=== PATIENT | female | born 1955 | race Caucasian/White ===

== ENCOUNTER → 2024-08-20 17:51 | Outpatient (CLI) | payer OTHER, MEDICARE, SELFPAY | PROVIDERS: Family Provider Family Medicine; Referring Provider Internal Medicine; Visit Provider Internal Medicine | DX: Z23 Encounter for immunization (principal) | CPT/HCPCS: 90471; 90656 ==

== ENCOUNTER 2025-05-25 08:50 | Day surgery (SDC) | payer OTHER, MEDICARE, SELFPAY ==
[2025-05-20 11:56] VITALS: BMI 23.8
[2025-05-25] VITALS (10 sets, daily range): BP systolic 167–228; BP diastolic 81–98; PULSE 52–63; RESP 14–971; TEMP 36.1–36.6; O2SAT 97–100; BMI 23.8
[2025-05-25] MEDS: LACTATED RINGERS 1,000 ML 42 ML IV (09:30)
--- NOTE | 2025-05-25 10:13 | PM.PREOP ---
Pre-operative Note COVID-19 Result date/Date tested (Pos, Neg/Pending): 05/25/25 Interval Note History & Physical reviewed/Exam performed by Physician: Yes Changes to H&P: No
[2025-05-25] MEDS: CEFAZOLIN 2 GM/100 ML PREMIX 100 ML IV (10:40)
--- NOTE | 2025-05-25 10:56 | SUR.OPER ---
Supine on padded OR bed, head on pillow, non operative arm secured on padded arm boards at <90 degrees abduction, operative arm on padded arm board, legs uncrossed, safety belt at thigh, tape over blanket over lower legs. Dr. Mcgarry in room at time of positioning to assist.
[2025-05-25] MEDS: LIDOCAINE 1% 20 ML INJ (11:07)
--- NOTE | 2025-05-25 11:32 | SUR.PHASEI ---
Pt had successive BP 182/82, 196/88, 206/83, d/w Connie FLORES, plan to monitor and notify if BP stays high Branden RN [id number]
--- NOTE | 2025-05-25 11:35 | P.OP_ITS ---
Operative Date/Time/Diagnoses Date of procedure: 05/25/25 Time of procedure: 11:35 Pre-op diagnosis: RIGHT Ring Finger Trigger Finger Post-op diagnosis: same Procedure & Clinicians Procedure: RIGHT RIng Finger Trigger Finger Same procedure(s) as scheduled: Yes Indications: Chronic Triggering Surgeon: Sudhakar Mcgarry American History Professor: Alla Pacheco Anesthesia Type: Sedation Operative Notes Findings: Thickened A1 rupa with a nodule on the flexor tendon Closure Type: primary Specimen(s): none sent Applied: none Estimated Blood Loss (mL): 3 Blood products transfused: none Tourniquet time (min): 22 Procedure in detail: Fingers Released: RIGHT Ring Finger Preoperative diagnosis: Stenosing Tenosynovitis of the Above Digits Procedure performed: A1 Rupa Release of the Above Digits Postoperative diagnosis: Same Primary Surgeon: Sudhakar Mcgarry MD Secondary Surgeon: PRUDENCIO Fonseca Physician American History Professor was used throughout the entirety of the case. This operation could not have been safely performed (without compromising the technical results or length of the procedure) without the assistance of a skilled surgical clinical reviewer. A surgical clinical reviewer was medically necessary for room set up, patient positioning, draping, retraction, visualization, reduction, fixation and closure. They were essential for the success of the case. Anesthesia: General EBL: 3 ml Tourniquet: 22 minutes @ 250 mmHg Indication For Surgery: Patient presented with triggering and pain of the affected digits. Conservative treatment did not improve symptoms to an acceptable level. The risks, benefits, and alternatives were discussed. Risks include pain, bleeding, infection, damage to nearby structures, tendon damage, nerve damage, blood vessel damage, wound healing complications, lack of symptom relief, need for further surgery, DVT, PE, stroke, and . Written consent was obtained. Operative Findings: Thickened A1 rupa of the affected digits. Triggering resolved after A1 rupa release. Procedure in Detail: The patient was met in the pre-operative hold area. Consent was verified and operative extremity was signed. The patient then met with anesthesia and was brought back to the operating room. The patient was placed supine on the operating table. Anesthetic was administered. Local anesthesia was injected. The extremity was then prepped and draped in the usual sterile fashion. A timeout was performed per protocol. All were in agreement and we proceeded. Local anesthesia was tested with a sharp adson pickup and found to be adequate. A longitudinal incision was made at the level of the A1 pully overlying the affected digit. Blunt dissection was made with scissors down to the tendon sheath and the tissues were spread in line with the tendon and neurovascular structures. 3 blunt retractors were placed and the A1 rupa was identified. The A1 rupa significantly thickened on examination. There was also synovitis extending proximal to the A1 rupa. The rupa was cut sharply with a knife from the distal to the proximal edge. A complete release was confirmed with the use of an elevator. Synovitis and thickening of the tendons were seen underneath it. The finger was then flexed and extended without any catching. The wound was irrigated copiously and closed with horizontal mattress sutures. A sterile dressing was applied. Postoperative Protocol: Same day discharge Soft dressing Unlimited finger flexion and extension Remove dressing in 4 days and replace with bandaid No firm gripping for 2 weeks Sutures out at 2 weeks Manual labor at 4 weeks Sudhakar Mcgarry MD Complications: none Post-operative Condition: stable Disposition: PACU
--- NOTE | 2025-05-25 11:59 | SUR.PHASEII ---
Pt transferred from OR to PACU with SBP 180s. Anesthesia record reviewed, SBP during first half of case in 200s. Connie Long CRNA notified. Advised to monitor pressure and if it maintains in 200s, hospitalist will be notified. See flowsheet for VS. Hospitalist notified at 1200.
--- NOTE | 2025-05-25 12:08 | SUR.PHASEII ---
Herberth Aldridge at bedside at 1205. Order for Amlodipine 5mg PO one obtained.
[2025-05-25] MEDS: AMLODIPINE 5 MG TABLET PO (12:14)
--- NOTE | 2025-05-25 12:19 | PM.PNPO.1 ---
Subjective Subjective Interval history: htn in PACU contacted hospitalist, Dr. Aldridge re: hypertension one time in house order for amlodipine 5mg, with RX to pharmacy for amlodipine 5 mg. will continue to monitor in PACU for 2-3 hours. Exam Vital Signs (past 8 hours): - 05/25/25 09:36 05/25/25 11:23 05/25/25 11:25 Temperature 97.3 F L 97.0 F L Pulse Rate 58 L 60 55 L Respiratory Rate 971 H 30 H 14 Blood Pressure 167/86 H 182/82 H 196/88 H Pulse Oximetry 97 99 99 Oxygen Delivery Method Room Air Room Air Room Air 05/25/25 11:30 05/25/25 11:35 05/25/25 11:40 Temperature 97.7 F Pulse Rate 57 L 58 L 60 Respiratory Rate 20 16 18 Blood Pressure 206/83 H 202/83 H 203/81 H Pulse Oximetry 98 98 98 Oxygen Delivery Method Room Air Room Air Room Air 05/25/25 11:52 05/25/25 11:53 Temperature Pulse Rate Respiratory Rate Blood Pressure 195/88 H 228/98 H Pulse Oximetry Oxygen Delivery Method Oxygen Delivery Method Room Air Narrative Exam Narrative: pt denies headache, chest pain, shortness of breath, confusion, blurred vision. symmetric smile bilaterally. [facility] Medical History (Updated 05/11/25 @ 21:40 by Sudhakar Mcgarry MD) Hypertension (Unknown) Restless leg syndrome (Unknown) OCD (obsessive compulsive disorder) (Unknown) Osteoarthritis (Unknown) Diverticular disease (Unknown) GERD (gastroesophageal reflux disease) (Unknown) Chickenpox (Unknown) Measles (Unknown) Mumps (Unknown) Surgical History History of foot surgery (Unknown) Hx of hand surgery (2000) Social History household members: none Smoking Status: Current some day smoker alcohol intake: former Assessment & Plan Post-op Postoperative Procedures: Procedures Operation Date: 05/25/25 10:15 Actual Procedure Side Surgeon p Ring Finger Trigger Release Right Sudhakar Mcgarry MD
--- NOTE | 2025-05-25 13:00 | PM.CN ---
History of Present Illness Consult details Chief complaint: Right Trigger Finger Release Reason for consult: Postoperative hypertension. Narrative: The patient was a pleasant 69-year-old female who was status post a trigger release of her finger. In the postoperative phase she was noted to be extremely hypertensive. She does have a history of hypertension and does not take oral medications. She takes garlic for this. She was no symptoms from her hypertension including headache, or dyspnea. She does have a history of restless leg syndrome, OCD, and GERD. In the PACU, she was agreeable to a dose of amlodipine. She was given 5 mg and her blood pressure improved. She was also open to taking blood pressure medications and having close follow up. Meds Home Medications and Allergies Home Medications ?Medication ?Instructions ?Recorded ?Confirmed ?Type ECHINACEA (NATURE'S BLEND 400 mg PO Q DAY ##0 06/23/11 05/25/25 History ECHINACEA) ascorbic acid (vitamin C) 500 mg 500 mg PO QDAY ##0 10/18/12 05/25/25 History tablet ranitidine HCl 150 mg capsule 150 mg PO BID #60 caps 06/03/18 05/25/25 Rx zolpidem 10 mg tablet 10 mg PO HS #30 tabs 08/28/18 05/11/25 Rx Allergies Allergy/AdvReac Type Severity Reaction Status Date / Time oxycodone (OXYCODONE) Allergy Unknown NAUSEA Verified 05/25/25 09:01 ivory soap Allergy Mild Uncoded 05/25/25 09:01 Review of Systems Review of Systems Narrative: All else reviewed and otherwise unremarkable except as noted in the history and physical. Exam Vital Signs (past 8 hours): Oxygen Delivery Method Room Air Narrative Exam Narrative: NAD, alert and oriented. Fluent speech. Right hand is wrapped. Lungs are clear, normal rate and effort. Heart is regular, no murmur gallop or rub. Abdomen is soft, non distended. Extremities are free of edema. [facility] Medical History Hypertension (Unknown) Restless leg syndrome (Unknown) OCD (obsessive compulsive disorder) (Unknown) Osteoarthritis (Unknown) Diverticular disease (Unknown) GERD (gastroesophageal reflux disease) (Unknown) Chickenpox (Unknown) Measles (Unknown) Mumps (Unknown) Surgical History History of foot surgery (Unknown) Hx of hand surgery (2000) Social History household members: none Tobacco & Substance Use Smoking Status: Current some day smoker alcohol intake: former Assessment & Plan Assessment & Plan narrative: 1. Uncontrolled hypertension detected in the postoperative area after he trigger finger release surgery. Plan: Amlodipine 5 mg now, and Rx given for amlodipine 5 mg daily number 30 with 2 refills. She was asked to follow up with her primary care to further discuss this and monitor blood pressure. Time-Based Coding :: /30 min spent with patient and on the chart (including review of chart, obtaining history, exam, reviewing outside data, placing orders, documenting exam and treatment plan, and counseling patient) on 05/25.
--- NOTE | 2025-05-25 13:46 | SUR.PHASEII ---
Pt discharged to home after BP within 20 points of baseline. Pt instructed to call PCP for f/u as soon as possible. Written prescription given to patient. Friend Lucina updated with plan and need to go to the pharmacy and check BP at home. .
== END 2025-05-25 13:23 | disposition home or self-care (01) ==
PROVIDERS: Referring Provider Orthopaedic Surgery; Visit Provider Orthopaedic Surgery
PROC: (CPT 26055; principal; 2025-05-25 10:15)
DX: M65.341 Trigger finger, right ring finger (principal); F17.210 Nicotine dependence, cigarettes, uncomplicated; M65.941 Unspecified synovitis and tenosynovitis, right hand
CPT/HCPCS: 26055; J0690; J2704